=== PATIENT | male | born 1965 | race Caucasian/White ===

== ENCOUNTER 2024-08-12 17:46 | Emergency (ER) | payer OTHER, SELFPAY ==
[2024-08-12 17:46] VITALS: BP 141/91; PULSE 69; RESP 14; TEMP 36.7; O2SAT 97; BMI 43.7
[2024-08-12 17:50] VITALS: O2SAT 97
[2024-08-12 18:00] VITALS: BP 169/103; O2SAT 98
--- NOTE | 2024-08-12 18:06 | EDS_ITS ---
HPI History of Present Illness Chief Complaint: Upper Extremity Injury Informant: patient, family and EMS Narrative Narrative: 59-year-old male arriving via EMS with a chief complaint of broken arm. Patient states he was celebrating his birthday when he tripped on a rock and due to a dog crossing underneath his feet. He does note that he is consume some alcohol and cannabis today. Patient states he fell directly onto his right arm/elbow and he heard a snap. He believes his arm is broken in between the elbow and the shoulder. He denies any chest discomfort abdominal discomfort or leg symptoms. He states he does not take any blood thinners. He denies any hand symptoms. PFSH PFSH Home Medications ?Medication ?Instructions ?Recorded ?Last Taken ?Type oxycodone-acetaminophen 5 mg-325 1 tab PO Q6H PRN pain 5 days #20 08/12/24 Unknown Rx mg tablet (Percocet) tabs Allergy/AdvReac Type Severity Reaction Status Date / Time No Known Allergies Allergy Verified 08/12/24 17:48 Social History Smoking Status: Never smoker ROS ROS ED Constitutional Constitutional ED: Denies chills, fever(s) or weight loss Eyes Eyes: Denies change in vision or diplopia ENT ENT ED: Denies ear pain, rhinorrhea or sore throat Cardiovascular Cardiovascular: Denies chest pain, orthopnea, palpitations or racing heartbeat Respiratory/Chest Respiratory/Chest: Denies cough, dyspnea or orthopnea Gastrointestinal Gastrointestinal: Denies abdominal pain, diarrhea, nausea or vomiting Genitourinary Genitourinary ED: Denies dysuria, hematuria or urinary frequency Musculoskeletal Musculoskeletal: Reports other Details: Right arm pain ; Denies arthralgias or myalgias Integumentary Denies abscess or rash Neurologic Neurologic: Denies headache(s) or weakness Psychiatric Psychiatric: Denies anxiety, depression, suicidal ideation or suicidal thoughts Endocrine Endocrinology: Denies polydipsia, polyphagia or polyuria Allergic/Immunologic Allergic/Immunologic ED: Denies mouth swelling, tongue swelling or urticaria EXAM Physical Exam Const Vital Signs: 08/12/24 17:46 Temperature 98.1 F Temperature Source Oral Pulse Rate 69 Respiratory Rate 14 Blood Pressure 141/91 H Blood Pressure Mean 107 Pulse Ox 97 Oxygen Delivery Method Room Air Positive well nourished, well developed and obese General Appearance ED: well developed and NAD Nutritional Appearance: obese HEENT Reports normocephalic, head/scalp atraumatic and moist mucous membranes Eyes PERRL and EOMs intact bilaterally Neck full ROM, no lymphadenopathy, supple and no JVD Resp normal respiratory effort and clear to auscultation bilaterally Cardio regular rate, regular rhythm and no murmurs GI normal to inspection, nondistended, normoactive bowel sounds and non-tender Palpation: soft Back/Spine no CVA tenderness and normal ROM Extremity Extremity Narrative: Right mid humerus palpates deformity with swelling. Limited range of motion secondary to pain. Distally I feel strong radial and ulnar pulse. He is neurovascularly intact with direct testing of the deltoid median ulnar and radial nerves. I do not appreciate an open fracture. General Extremety ED: Negative for edema General Extremity: Negative for edema Neuro oriented x3 and CN's II-XII intact bilaterally Sensorium / Orientation: alert Motor Exam: strength 5/5 throughout Psych mental status grossly normal Mood & Affect: Negative for depressed or tearful Skin no rashes or lesions noted and no wounds MDM MDM MDM Narrative Medical decision making narrative: Differential diagnosis includes neurovascular injury, fracture, tendon rupture muscle injury sprain strain My independent interpretation of plain films of the humerus is a midshaft fracture. Case was discussed with on-call orthopedics. Patient was placed in a coaptation padded splint and sling. He received a milligram of Dilaudid here in the emergency department and a prescription for Percocet. He will need to follow-up with orthopedics. Monitoring his sensation and movement in his hand return if concerns History & Record Review Discussion w/independent historian: Patient and Family Management Discussion w/another healthcare provider: [employer] (Dr Vargas (orthopedics)) Discharge Plan Triage Chief Complaint: Upper Extremity Injury ED Provider: Robin Presley Dx/Rx/DC Orders Clinical Impression: Fall, Fracture, humerus Instructions: Understanding a Humerus Fracture Prescriptions: New oxycodone-acetaminophen [Percocet] 5-325 mg tablet 1 tab PO Q6H PRN (Reason: pain) 5 Days Qty: 20 0RF Primary Care Provider: Care Physician,No Primary Referrals: Ishan Vargas MD [Med Staff - Active Staff] - As soon as possible Care Physician,No Primary [Primary Care Provider] - Print Language: Faroese Disposition Disposition: Home, Self Care
--- NOTE | 2024-08-12 18:15 | RAD_ITS ---
PROCEDURE: HUMERUS MIN 2 VIEWS 08/12/2024 REASON FOR EXAM: FRACTURE TECHNIQUE: 2 view(s) of the right humerus. COMPARISON: None FINDINGS: Examination is limited by patient body habitus and positioning. Mildly displaced oblique fracture mid shaft right humerus. Within the limits of evaluation, no other fractures are noted. RAD/Humerus min 2 Views IMPRESSION: See above Reading Location: [facility]
[2024-08-12] MEDS: HYDROmorphone 1 MG/ML Syringe IM (18:28)
[2024-08-12 18:30] VITALS: BP 148/92; PULSE 69; RESP 18; O2SAT 96
--- NOTE | 2024-08-12 19:16 | ED.RN ---
MD made aware pt not feeling well, bp dropped and O2 90% on RA.
[2024-08-12 19:17] VITALS: BP 81/53; PULSE 64; RESP 18; O2SAT 90
[2024-08-12 20:19] VITALS: BP 138/72; PULSE 78; RESP 17; TEMP 36.6; O2SAT 99
== END 2024-08-12 20:19 | disposition home or self-care (01) ==
PROVIDERS: Emergency Provider Emergency Medicine; Visit Provider Emergency Medicine
DX: S42.301A Unspecified fracture of shaft of humerus, right arm, initial encounter for closed fracture (principal); W01.198A Fall on same level from slipping, tripping and stumbling with subsequent striking against other object, initial encounter
CPT/HCPCS: 29125; 73060; 96372; 99284